=== PATIENT | female | born 1980 | race Caucasian/White ===

== ENCOUNTER 2019-05-10 11:50 | Emergency (ER) | payer OTHER ==
--- NOTE | 2019-05-10 12:31 | ED ---
HPI Febrile Illness - HPI Summary HPI Summary: This patient is a 38 y/o female presenting to [facility] c/o fever since yesterday. Patient reports she went to [facility] in [facility] with her for work on 04/28/19 and returned to [place] on 05/05/19. Patient notes ever since she has been back she has isolated herself in her home from everyone except her . Patient denies any other complaints. Denies chest pain, shortness of breath, nausea, vomiting. 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 Patient states she has not been in contact with any COVID-19 positive patients but would like to be tested. PMHx: Hepatitis A when she was a child, allergies to pollen. Denies any tobacco and drug use. She reports occasional alcohol use. - History of Current Complaint Time Seen by Provider: 05/10/19 12:03 Hx Obtained From: Patient Onset/Duration: Started Days Ago - 1, Still Present Timing: Lasting Days - 1 Current Severity: Moderate Pain Intensity: 0 Pain Scale Used: 0-10 Numeric Aggravating Factors: Nothing Alleviating Factors: Nothing Associated Signs and Symptoms: Negative - Allergy/Home Medications Allergies/Adverse Reactions: Allergies Allergy/AdvReac Type Severity Reaction Status Date / Time No Known Allergies Allergy Verified 05/10/19 12:15 PMH/Surg Hx/FS Hx/Imm Hx Endocrine/Hematology History: Denies: Hx Diabetes Cardiovascular History: Denies: Hx Hypertension - Surgical History Surgical History: None Infectious Disease History: No Infectious Disease History: Reports: Hx Hepatitis - Hepatitis A when was a child Denies: Traveled Outside the [place] in Last 30 Days - Family History Known Family History: Positive: Cardiac Disease - Social History Alcohol Use: Occasionally Substance Use Type: Reports: None Smoking Status (MU): Never Smoked Tobacco Review of Systems Positive: Fever Negative: Chest Pain Negative: Shortness Of Breath Negative: Vomiting, Nausea All Other Systems Reviewed And Are Negative: Yes Physical Exam - Summary Physical Exam Summary: VITAL SIGNS: Reviewed. GENERAL: Patient is a well-developed and nourished female who is lying comfortable in the stretcher. Patient is not in any acute respiratory distress. HEAD AND FACE: No signs of trauma. No ecchymosis, hematomas or skull depressions. No sinus tenderness. EYES: PERRLA, EOMI x 2, No injected conjunctiva, no nystagmus. EARS: Hearing grossly intact. Ear canals and tympanic membranes are within normal limits. MOUTH: Oropharynx within normal limits. NECK: Supple, trachea is midline, no adenopathy, no JVD, no carotid bruit, no c- spine tenderness, neck with full ROM. CHEST: Symmetric, no tenderness at palpation LUNGS: Clear to auscultation bilaterally. No wheezing or crackles. CVS: Regular rate and rhythm, S1 and S2 present, no murmurs or gallops appreciated. ABDOMEN: Soft, non-tender. No signs of distention. No rebound, no guarding, and no masses palpated. Bowel sounds are normal. EXTREMITIES: FROM in all major joints, no edema, no cyanosis or clubbing. NEURO: Alert and oriented x 3. No acute neurological deficits. Speech is normal and follows commands. SKIN: Dry and warm Triage Information Reviewed: Yes Vital Signs On Initial Exam: Initial Vitals Temp Pulse Resp BP Pulse Ox 98.1 F 94 18 165/114 100 05/10/19 12:08 05/10/19 12:08 05/10/19 12:08 05/10/19 12:08 05/10/19 12:08 Vital Signs Reviewed: Yes Procedures - Sedation Patient Received Moderate/Deep Sedation with Procedure: No Diagnostics - Vital Signs Vital Signs Temp Pulse Resp BP Pulse Ox 05/10/19 12:08 98.1 F 94 18 165/114 100 - Laboratory Lab Statement: Any lab studies that have been ordered have been reviewed, and results considered in the medical decision making process. Course/Dx - Course Assessment/Plan: This patient is a 38 y/o female presenting to [facility] c/o fever since yesterday. Patient reports she went to [facility] in [place] [facility] with her for work on 04/28/19 and returned to [place] on 05/05/19. Patient notes ever since she has been back she has isolated herself in her home from everyone except her . Patient denies any other complaints. Denies chest pain, shortness of breath, nausea, vomiting. 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 Patient states she has not been in contact with any COVID-19 positive patients but would like to be tested. PMHx: Hepatitis A when she was a child, allergies to pollen. Denies any tobacco and drug use. She reports occasional alcohol use. The patient is afebrile in the emergency department. Temperature is only 98.1 F. The patient is very hypertensive but the patient is right-sided. Repeat blood pressure is 154/104. Patient has no history of hypertension therefore she was recommended to follow up with the primary care physician. Patient does not need any chest x- ray as the patient has no symptoms. Since the patient wants to be tested for COVID-19 because she was in the city, the swabs were obtained and they were sent. The patient was given instructions of self quarantine. The patient understands and agrees to self quarantine at home. Patient will be given a thermometer to check for temperature. Patient was given instructions to return to the emergency room if she develops shortness of breath, weakness, lethargy or respiratory distress symptoms. The patient understands and agrees. At this time the patient is hemodynamically stable, alert and oriented 3. - Diagnoses Provider Diagnoses: Fever Discharge ED - Sign-Out/Discharge Documenting (check all that apply): Patient Departure - Discharge home - Discharge Plan Condition: Stable Disposition: HOME Patient Education Materials: Fever in Adults (ED) Referrals: [facility] [Outside] Additional Instructions: FOLLOW UP WITH YOUR PRIMARY CARE PROVIDER IN 2-3 DAYS, IF YOU DON'T HAVE ANY PLEASE FOLLOW UP WITH [facility]. RETURN TO THE ED FOR ANY NEW OR WORSENING SYMPTOMS. - Billing Disposition and Condition Condition: STABLE Disposition: Home - Attestation Statements Document Initiated by Carlos: Yes Documenting Scribe: Roma Mares Provider For Whom Carlos is Documenting (Include Credential): Jose Zurita MD Scribe Attestation: Roma Ashton scribed for Jose Zurita MD on 05/12/19 at 0348. Scribe Documentation Reviewed: Yes Provider Attestation: The documentation as recorded by the Roma ag accurately reflects the service I personally performed and the decisions made by me, Jose Zurita MD Status of Scribe Document: Viewed
[2019-05-10 12:47] LABS: Influenza A Molecular Negative (Negative); Influenza B Molecular Negative (Negative)
== END 2019-05-10 13:31 | disposition home or self-care (01) ==
LOC: ED 11:50
DX: R50.9 Fever, unspecified (principal)
CPT/HCPCS: 99282; U0002